=== PATIENT | female | born 1990 | race African-American/Black ===

== ENCOUNTER 2018-09-20 01:02 | Inpatient (IN) | payer OTHER ==
[2018-09-20] MEDS ORDERED: METHYLERGONOVINE 0.2MG/ML AMP IM PRN (05:07)
[2018-09-20] MEDS ORDERED: MIDAZOLAM HCL 2 MG/2 ML INJ IV PRN (05:07)
[2018-09-20] MEDS ORDERED: MEPERIDINE HCL 25 MG/0.5 ML IV PRN (05:07)
[2018-09-20] MEDS ORDERED: CARBOPROST TROME 250 MCG/ML IM PRN (05:07)
[2018-09-20] MEDS ORDERED: Ringers Lactate 1,000 ML IV PRN (05:07)
[2018-09-20] MEDS ORDERED: PROMETHAZINE 25 MG/ML VIAL IM PRN (05:07)
[2018-09-20] MEDS ORDERED: BUTORPHANOL 1 MG/ML INJ IV PRN (05:07)
[2018-09-20 05:30] LABS: RPR Titer ND
[2018-09-20 05:34] VITALS: BMI 33.3
[2018-09-20 05:48] LABS: Absolute Lymphocytes (CBC) 3.9 K/uL (0.7-4.9); Absolute Monocytes 1.4 K/uL (0.1-1.3); Absolute Neutrophil 14.3 K/uL (1.8-8.0); Basophils % 0.5 % (0-1.3); Hematocrit 32.6 % (36.0-45.0); Lymphocytes % 19.4 % (15.3-44.8); MPV 10.3 fL (7.6-11.3); Monocytes % 7.2 % (3.3-12.3); RBC Red Blood Cell Count 4.11 M/uL (3.86-4.86)
[2018-09-20] MEDS ORDERED: Ringers Lactate 1,000 ML IV SCH (06:00)
[2018-09-20] MEDS ORDERED: OXYTOCIN/LR 20 UNIT/1,000 ML BAG IV SCH ×2 (06:00→18:00)
[2018-09-20 06:45] LABS: Urine Appearance CLEAR; Urine Bilirubin NEGATIVE (NEG); Urine Blood NEGATIVE (NEG); Urine Color DK YELLOW; Urine Glucose NEGATIVE (NEG); Urine Protein TRACE (NEG); Urine Specific Gravity 1.025 (1.005-1.030)
[2018-09-20 06:52] LABS: Urine Microscopic Reflex ORDER UMIC
[2018-09-20 06:58] LABS: Urine Bacteria <20 /HPF (<20); Urine Culture Reflex Order REFLEXED; Urine Mucus 1+ /HPF (NONE SEEN); Urine RBC <5 /HPF (NONE SEEN)
[2018-09-20 08:46] LABS: Blood Morphology Comment NOTED (NOT SEEN); Urine White Blood Cell Casts OK
[2018-09-20 08:47] LABS: Anisocytosis 1+; Platelet Estimate ADEQ
[2018-09-20] MEDS ORDERED: FENTANYL CITR 100 MCG/2 ML IV ONE (09:08)
[2018-09-20] MEDS ORDERED: ROPIVACAINE HCL 100 ML IV PRN (09:09)
[2018-09-20] MEDS ORDERED: ROPIVACAINE HCL 0.2% 20ML AMP IV ONE (09:10)
[2018-09-20] MEDS ORDERED: NA CIT/CITRIC AC 30 ML ORAL UDC PO ONE (13:46)
[2018-09-20] MEDS ORDERED: FAMOTIDINE 20 MG/2 ML VIAL IV ONE (13:47)
[2018-09-20] MEDS ORDERED: METOCLOPRAMIDE 10 MG/2mL INJ IV SCH (14:00)
[2018-09-20] MEDS ORDERED: CEFAZOLIN/SWI 2gm 2 GM/20 ML SYR IVP SCH (15:30)
--- NOTE | 2018-09-20 16:06 | PN ---
Upon achieving 4 cm, requested her epidural anesthesia. This was instituted slightly. Thereafter, s he had some decelerations down to 60 beats per minute but maintained good variability throughout. Sh e was put in knee-chest position and this resolved the problem. She is now back on the left side and the baby looks good. She is still 6 cm. We will likely begin Pitocin again to try to stimulate romy adriane contractions. Full discussion with the family. MARY/PAUL Voice ID: [id number] Report ID: [id number]
[2018-09-20] MEDS ORDERED: LIDOCAINE 1% 20 ML MDV ONE (17:42)
--- NOTE | 2018-09-20 17:42 | PN ---
Subjective: The patient has progressed to 7.5 to 8 cm, but the cervix is becoming edematous. She is not descended any more than what she was on previous exams and I believe the baby is straight occipu t posterior. We will start her doing pelvic rocks, cut the epidural maintenance dose from 10 to 8 as she cannot feel anything at all. Occasionally, the baby will have heart rate pattern, it look s like a nuchal cord and then with positioning and IV hydration, it will straighten out plus each valeriy e she has this pattern, we can cut the Pitocin off and then restart at a very low rate. I am afraid without Pitocin she is probably not going to dilate, but with it we tend to get into some heart rate irregularities. Full discussion with patient and family. Right now, though, baby is looking excelle nt and we will restart the Pitocin at a low dose and progress cautiously. MARY/PAUL Voice ID: [id number] Report ID: [id number]
[2018-09-20] MEDS ORDERED: DOCUSATE NA/SENNA CONC 1 TAB PO PRN (17:47)
[2018-09-20] MEDS ORDERED: ACETAMINOPHEN 500 MG TAB PO PRN (17:47)
[2018-09-20] MEDS ORDERED: BISACODYL 10 MG RECTAL SUPP RECT PRN (17:47)
[2018-09-20] MEDS ORDERED: Oxycodone HCl/Acetaminophen 1 TAB TAB PO PRN (17:47)
[2018-09-20] MEDS ORDERED: DIPHENHYDRAMINE 25 MG TAB/CAP PO PRN (17:47)
--- NOTE | 2018-09-20 17:57 | PN ---
Subjective: The patient has really made no change in the last 2.5 to 3 hours now, she is 8.5, edemat ous cervical lip, baby is definitely occiput posterior. At times, the baby will have decelerations t hat look like a cord pattern, but then when she is on her side it goes completely back to normal. Edgar baker is greg regularly every 2 to 3 minutes. She is aware of her contractions, but is not in any significant discomfort. Preoperative discussion concerning infection, blood loss, anesthetic compli cations, injury to bladder, bowel, ureter, postoperative complications, clots in legs, and pneumonia, the patient knows fully well, does not constitute all the possible problems that could occur during or following surgery. I have advised the patient to probably wait at least another 30 minutes to an hour and if no change, then proceed with C section, but she is thinking about requesting surgical int ervention earlier. She will talk it over the family and then let us know. Otherwise, I plan to chec k her in about half an hour. MARY/PAUL Voice ID: [id number] Report ID: [id number]
[2018-09-20] MEDS ORDERED: CEFAZOLIN/SWI 1gm 1 GM/10 ML SYR ONE (18:10)
[2018-09-20] MEDS ORDERED: Oxycodone HCl/Acetaminophen 1 TAB TAB ONE (18:18)
[2018-09-20] MEDS ORDERED: BUTORPHANOL 1 MG/ML INJ ONE (18:34)
[2018-09-20] MEDS ORDERED: PROMETHAZINE 25 MG/ML VIAL ONE (18:34)
[2018-09-20] MEDS ORDERED: CEFAZOLIN/NS 1gm 1 GM/50 ML BAG IVPB ONE (19:30)
[2018-09-20] MEDS ORDERED: BUTORPHANOL 1 MG/ML INJ IV ONE (19:33)
[2018-09-20] MEDS ORDERED: PROMETHAZINE 25 MG/ML VIAL IM ONE (19:33)
[2018-09-20] MEDS: IBUPROFEN 200 MG TAB PO PRN (20:00)
[2018-09-20 20:58] LABS: RPR (Rapid Plasma Reagin) NON-REACT (NON-REACT)
[2018-09-20] MEDS: Oxycodone HCl/Acetaminophen 1 TAB TAB PO PRN (22:15)
--- NOTE | 2018-09-21 04:13 | OP ---
Surgeon: Bib Mina MD A 28-year-old, 2, para 1, 39 weeks 2 days, approximately 2-1/2 to 3 cm on admission. Rupture of membranes, clear fluid. At 4 cm, patient requested and received epidural anesthesia. This made the patient extremely numb. Gradually during the labor, was allowed to slightly wear off. The patie nt was noted to be occiput posterior. Pushed for approximately 20-30 minutes. Spontaneous vaginal d elivery with the assistance of kiwi suction of an estimated 8-pound male , Apgars 7 or 8 at 1 m inute and 9 at 5 minutes. Second-degree lateral episiotomy performed to create more room, repaired w ith 2-0 chromic local infiltration, although patient was still numb from her epidural. Aishwarya colmenares of the placenta which was inspected and noted to be intact and normal. 300 cc or less blood los s. Nuchal cord x1 noted at the time of delivery. The patient tolerated all procedures well. Final Diagnoses: Term intrauterine , 39 weeks 2 days, vaginal delivery, epidural anesthesia . Vacuum assisted delivery. Ancef 1 g ordered as patient had [place] catheter placed during the labor after the epidural; this was removed as it was not ordered. MARY/MODL Voice ID: [id number] Report ID: [id number]
[2018-09-21] MEDS ORDERED: Ringers Lactate 1,000 ML IV ONE (05:02)
[2018-09-21] MEDS: IBUPROFEN 200 MG TAB PO PRN ×2 (05:59→13:51)
--- NOTE | 2018-09-21 07:25 | DS ---
A 28-year-old, 2, para 1, 39 weeks 2 days, delivered of 8 pound 4 ounce male from a st ight occiput posterior position, vacuum-assisted delivery. Apgars 8 and 9. Second degree episioto my created to help with her delivery process, repaired with 2-0 chromic. Schultze delivery of the pl acenta, which inspected and noted to be intact and normal. 300 cc or less blood loss. Rh positive, immune to Rubella. Negative beta strep screen. Ancef 1 g given secondary to [place] catheter being in place during the labor - not ordered. ; afebrile, ambulating, voiding, lochia is normal. She will be dismissed later this evening. To report back to my office in 6 weeks for followup. To report any temperature elevation of 100 degrees or greater, severe pain, heavy bleeding, or any other type of abnormalities. No post epidural problems. Tdap offered. Dismissed with tramadol for analg esia, although she may elect to take Motrin instead. Final Diagnoses: Term intrauterine , 39 weeks 2 days. [facility]. Epidural anesthesia. MARY/PAUL Voice ID: [id number] Report ID: [id number]
[2018-09-21] MEDS: Oxycodone HCl/Acetaminophen 1 TAB TAB PO PRN ×2 (07:57→13:52)
--- NOTE | 2018-09-21 08:14 | PREOPHP ---
Date of Admission: 09/20/2018 This 28-year-old, 2, para 1, 39 weeks 2 days, Rh positive, nonimmune to rubella. This has be en discussed several times during the . She knows she should get immunized before she leave s the hospital. Tdap has been offered numerous times. Full labor talk given. She is 3 cm, somewhat slightly posterior, 60% effaced, vertex, well applied, -1 station. Rupture of membranes, clear flui d. Anticipate more rapid progress once she gets to 5 cm, probably will be requesting epidural anesth esia. MARY/PAUL Voice ID: [id number]
[2018-09-21] MEDS ORDERED: MEASLES,MUMPS,RUBELLA VAC 0.5ML SQVAC ONE (18:00)
[2018-09-21] MEDS ORDERED: Tdap (Diph,Pertuss(Acell),Tet Vac) 0.5 ML SYR IMVAC ONE (18:00)
[2018-09-21 21:10] VITALS: BP 134/84; TEMP 97.2
[2018-09-22 18:23] LABS: HBsAG Nonreactive (Nonreactive)
== END 2018-09-21 20:45 | disposition home or self-care (01) | DRG 807 ==
LOC: 2ND-WC 04:35
PROVIDERS: ADMIT Specialist; ATTEND Specialist
PROC: 10D07Z6 Extraction of Products of Conception, Vacuum, Via Natural or Artificial Opening (ICD-10-PCS; principal; 2018-09-20)
PROC: 0W8NXZZ Division of Female Perineum, External Approach (ICD-10-PCS; 2018-09-20)
DX: O64.0XX0 Obstructed labor due to incomplete rotation of fetal head, not applicable or unspecified (principal); Z37.0 Single live birth; Z3A.39 39 weeks gestation of pregnancy; O69.81X0 Labor and delivery complicated by cord around neck, without compression, not applicable or unspecified; Z23 Encounter for immunization
CPT/HCPCS: 36415; 81003; 81015; 85025; 86592; 86850; 86900; 86901; 87086; 87088; 87340; 90471; 90707; 90715; J0595; J0690; J2175; J2210; J2550; J2590; J2765; J2795; J3010

== ENCOUNTER 2019-03-22 08:22 | Emergency (ER) | payer OTHER, SELFPAY ==
--- NOTE | 2019-03-22 09:52 | ER ---
Nurse's Notes [facility] Name: Carmen Luna Age: 28 yrs Sex: Female : 1990 Arrival Date: 03/22/2019 Time: 08:26 Bed 16 Private MD: Diagnosis: Acute pharyngitis;Headache Presentation: 03/22 08:38 Presenting complaint: Patient states: sore throat and headache x 2-3 days. Transition ss of care: patient was not received from another setting of care. Onset of symptoms was March 20, 2019. Risk Assessment: Do you want to hurt yourself or someone else? Patient reports no desire to harm self or others. Initial Sepsis Screen: Does the patient meet any 2 criteria? No. Patient's initial sepsis screen is negative. Does the patient have a suspected source of infection? No. Patient's initial sepsis screen is negative. Care prior to arrival: None. 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 - Social history:: Smoking status: Patient uses tobacco products, denies chronic smoking, but will smoke occasionally. - Ebola Screening: : Patient denies exposure to infectious person Patient denies travel to an Ebola-affected area in the 21 days before illness onset. Screenin:48 Abuse screen: Denies threats or abuse. Denies injuries from another. Nutritional jl7 screening: No deficits noted. Tuberculosis screening: No symptoms or risk factors identified. Fall Risk None identified. Assessment: 08:48 General: Appears in no apparent distress. comfortable, Behavior is calm, cooperative, jl7 appropriate for age. Pain: Complains of pain in sore throat and SCOTT Pain currently is 6 out of 10 on a pain scale. Neuro: Level of Consciousness is awake, alert, obeys commands, Oriented to person, place, time, situation. Cardiovascular: Patient's skin is warm and dry. Respiratory: Airway is patent Respiratory effort is even, unlabored, Respiratory pattern is regular, symmetrical, Breath sounds are clear bilaterally. EENT: Throat is clear is pink. Derm: Skin is pink, warm \T\ dry. 09:45 Reassessment: Patient appears in no apparent distress at this time. No changes from jl7 previously documented assessment. Patient and/or family updated on plan of care and expected duration. Pain level reassessed. Patient is alert, oriented x 3, equal unlabored respirations, skin warm/dry/pink. Vital Signs: 08:39 BP 125 / 78; Pulse 79; Resp 15; Temp 97.6(TE); Pulse Ox 100% on R/A; Weight 80.29 kg; ss Height 5 ft. 6 in. (167.64 cm); Pain 6/10; 08:39 Body Mass Index 28.57 (80.29 kg, 167.64 cm) ED Course: 08:26 Patient arrived in ED. mr 08:38 Triage completed. ss 08:39 Arm band placed on left wrist. 08:40 Dhiraj Fox FNP-C [facility]. la1 08:40 Magno De Oliveira MD is Attending Physician. la1 08:48 Jessica Rosario, RN is Primary Nurse. jl7 08:48 Patient has correct armband on for positive identification. Bed in low position. Call jl7 light in reach. Side rails up X 1. 09:00 Flu and/or RSV swab sent to lab. Strep swab sent to lab. jl7 10:16 No provider procedures requiring assistance completed. Patient did not have IV access jl7 during this emergency room visit. Administered Medications: No medications were administered Outcome: 09:52 Discharge ordered by . la1 10:17 Discharged to home ambulatory. jl7 10:17 Condition: stable 10:17 Discharge instructions given to patient, Instructed on discharge instructions, follow up and referral plans. Demonstrated understanding of instructions, follow-up care. 10:18 Patient left the ED. jl7 Signatures: [place] Bryan Anna Meyers, RN RN Dhiraj Fox FNP-C FNP-[facility] Jessica Rosario RN RN jl7
--- NOTE | 2019-03-22 09:53 | EDPHYS ---
Physician Documentation [facility] Name: Carmen Luna Age: 28 yrs Sex: Female : 1990 Arrival Date: 03/22/2019 Time: 08:26 Bed 16 Private MD: ED Physician Magno De Oliveira HPI: 03/22 09:26 This 28 yrs old Black Female presents to ER via Ambulatory with complaints of Sore la1 Throat, Headache. 09:26 The patient presents with sore throat. The patient describes throat pain as scratchy. la1 Onset: The symptoms/episode began/occurred 2 day(s) ago. Severity of symptoms: At their worst the symptoms were mild. Modifying factors: The symptoms are alleviated by nothing, the symptoms are aggravated by swallowing. Associated signs and symptoms: Pertinent positives: chills, cough. The patient has not experienced similar symptoms in the past. Pt reports that she has had a headache, sore throat, nasal congestion for the last 2 days.. 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 - Social history:: Smoking status: Patient uses tobacco products, denies chronic smoking, but will smoke occasionally. - Ebola Screening: : Patient denies exposure to infectious person Patient denies travel to an Ebola-affected area in the 21 days before illness onset. ROS: 09:26 Constitutional: Negative for fever, chills, and weight loss, Eyes: Negative for injury, la1 pain, redness, and discharge, ENT: Negative for injury, pain, positive for runny nose, congestion Neck: Negative for injury, pain, and swelling, Cardiovascular: Negative for chest pain, palpitations, and edema, Respiratory: Negative for shortness of breath, wheezing, and pleuritic chest pain,positive for cough Abdomen/GI: Negative for abdominal pain, nausea, vomiting, diarrhea, and constipation, : Negative for injury, bleeding, discharge, and swelling, Skin: Negative for injury, rash, and discoloration, Neuro: Negative for headache, weakness, numbness, tingling, and seizure. Exam: 09:28 Constitutional: This is a well developed, well nourished patient who is awake, alert, la1 and in no acute distress. Head/Face: Normocephalic, atraumatic. Eyes: Pupils equal round and reactive to light, extra-ocular motions intact.Periorbital areas with no swelling, redness, or edema. ENT: Nares patent. No nasal discharge, no septal abnormalities noted. Tympanic membranes are normal and external auditory canals are clear. Oropharynx is erythematous but without swelling, or masses, exudates, or evidence of obstruction, uvula midline. Mucous membranes moist. Neck: Trachea midline, no thyromegaly or masses palpated. Supple, full range of motion without nuchal rigidity, or vertebral point tenderness. No Meningismus. Mild cervical lymphadenopathy Chest/axilla: Normal chest wall appearance and motion. Nontender with no deformity. No lesions are appreciated. Cardiovascular: Regular rate and rhythm with a normal S1 and S2. No gallops, murmurs, or rubs. Normal PMI, no JVD. No pulse deficits. Respiratory: Lungs have equal breath sounds bilaterally, clear to auscultation No rales, rhonchi or wheezes noted. No increased work of breathing, no retractions or nasal flaring. Abdomen/GI: Soft, non-tender, with normal bowel sounds. No distension or tympany. No guarding or rebound. No evidence of tenderness throughout. MS/ Extremity: Pulses equal, no cyanosis. Neurovascular intact. Full, normal range of motion. Neuro: Awake and alert, GCS 15, oriented to person, place, time, and situation. Vital Signs: 08:39 BP 125 / 78; Pulse 79; Resp 15; Temp 97.6(TE); Pulse Ox 100% on R/A; Weight 80.29 kg; ss Height 5 ft. 6 in. (167.64 cm); Pain 6/10; 08:39 Body Mass Index 28.57 (80.29 kg, 167.64 cm) ss MDM: 08:40 Patient medically screened. la1 09:51 Data reviewed: vital signs, nurses notes, lab test result(s), and as a result, I will la1 discharge patient. Data interpreted: Pulse oximetry: on room air is 100 %. Interpretation: normal. Counseling: I had a detailed discussion with the patient and/or guardian regarding: the historical points, exam findings, and any diagnostic results supporting the discharge/admit diagnosis, the presence of at least one elevated blood pressure reading (>120/80) during this emergency department visit, lab results, the need for outpatient follow up, a family practitioner, to return to the emergency department if symptoms worsen or persist or if there are any questions or concerns that arise at home. 03/22 08:55 Order name: Strep la1 03/22 08:55 Order name: Flu la1 03/22 09:24 Order name: Throat Culture EDMS Administered Medications: No medications were administered Disposition: 14:09 Co-signature as Attending Physician, Magno De Oliveira MD. rn Disposition: 03/22/19 09:52 Discharged to Home. Impression: Acute pharyngitis, Headache. - Condition is Stable. - Discharge Instructions: Pharyngitis, Viral Respiratory Infection, Mxus-[id number]-Rcqh, General Headache Without Cause, Asws-rh-Vufk, Sore Throat, Xanz-rl-Hpak. - Work release form, Medication Reconciliation Form, Thank You Letter form. - Follow up: Private Physician; When: 2 - 3 days; Reason: Recheck today's complaints, Re-evaluation by your physician. - Problem is new. - Symptoms are unchanged. Signatures: Dispatcher [employer] EDMS Magno De Oliveira MD MD rn Smirch, Shelby, RN RN Dhiraj Fox, CROP SETTING OUT MACHINE OPERATOR-C CROP SETTING OUT MACHINE OPERATOR-Cla1 Jessica Rosario RN RN jl7 Corrections: (The following items were deleted from the chart) 10:18 09:52 03/22/2019 09:52 Discharged to Home. Impression: Acute pharyngitis; Headache. jl7 Condition is Stable. Forms are Medication Reconciliation Form, Thank You Letter, Antibiotic Education, Prescription Opioid Use. Follow up: Private Physician; When: 2 - 3 days; Reason: Recheck today's complaints, Re-evaluation by your physician. Problem is new. Symptoms are unchanged. la1
[2019-03-22 10:51] VITALS: BP 125/78; TEMP 97.6; O2SAT 100
== END 2019-03-22 10:18 | disposition home or self-care (01) ==
LOC: ER 08:22
DX: R51 Headache (principal); Z72.0 Tobacco use
CPT/HCPCS: 87070; 87081; 87804; 99283

== ENCOUNTER 2019-04-16 06:54 | Emergency (ER) | payer SELFPAY ==
[2019-04-16] MEDS ORDERED: IBUPROFEN 200 MG TAB PO ONE (08:03)
[2019-04-16] MEDS ORDERED: OSELTAMIVIR 75 MG CAP ONE (08:03)
[2019-04-16] MEDS ORDERED: AMOX/K CLAV 875 MG TAB ONE (08:03)
--- NOTE | 2019-04-16 08:22 | ER ---
Nurse's Notes [facility] Name: Carmen Luna Age: 28 yrs Sex: Female : 1990 Arrival Date: 04/16/2019 Time: 06:57 Bed 19 Private MD: Diagnosis: Acute pharyngitis;Fever, unspecified;Acute upper respiratory infection, unspecified Presentation: 04/16 07:05 Presenting complaint: Patient states: Symptoms started yesterday, sore throat, fever, rb1 and runny nose. Transition of care: patient was not received from another setting of care. Onset of symptoms was April 15, 2019. Risk Assessment: Do you want to hurt yourself or someone else? Patient reports no desire to harm self or others. Initial Sepsis Screen: Does the patient meet any 2 criteria? No. Patient's initial sepsis screen is negative. Does the patient have a suspected source of infection? No. Patient's initial sepsis screen is negative. Care prior to arrival: None. 07:05 Method Of Arrival: Ambulatory rb1 07:05 Acuity: REG 3 rb1 Triage Assessment: 07:05 General: Appears in no apparent distress. comfortable, Behavior is calm, cooperative, rb1 Reports fever for. Pain: Complains of pain in throat Pain currently is 7 out of 10 on a pain scale. EENT: Reports nasal discharge that is watery. Neuro: Level of Consciousness is awake, alert, obeys commands, Oriented to person, place, time, situation. Cardiovascular: Capillary refill < 3 seconds is brisk in bilateral fingers. Respiratory: Reports cough that is Airway is patent Respiratory effort is even, unlabored, Respiratory pattern is regular, symmetrical. GI: No signs and/or symptoms were reported involving the gastrointestinal system. : No signs and/or symptoms were reported regarding the genitourinary system. Derm: Skin is pink, warm \T\ dry. 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 - Social history:: Smoking status: Patient/guardian denies using tobacco. - Ebola Screening: : Patient negative for fever greater than or equal to 101.5 degrees Fahrenheit, and additional compatible Ebola Virus Disease symptoms. - Family history:: not pertinent. Screenin:05 Abuse screen: Denies threats or abuse. Nutritional screening: No deficits noted. rb1 Tuberculosis screening: No symptoms or risk factors identified. Fall Risk None identified. Assessment: 07:05 General: See triage assessment. rb1 07:05 EENT: Throat is reddened. rb1 Vital Signs: 07:05 BP 129 / 87; Pulse 103; Resp 17; Temp 99.0(O); Pulse Ox 99% on R/A; Weight 78.02 kg rb1 (R); Height 5 ft. 5 in. (165.10 cm) (R); Pain 7/10; 08:17 BP 106 / 75; Pulse 60; Resp 17; Temp 98.5; Pulse Ox 100% on R/A; ae4 07:05 Body Mass Index 28.62 (78.02 kg, 165.10 cm) rb1 ED Course: 06:57 Patient arrived in ED. 06:59 Cesar Cole MD is Attending Physician. [facility] 07:05 Arm band placed on right wrist. rb1 07:05 Patient has correct armband on for positive identification. Bed in low position. Call rb1 light in reach. Side rails up X 1. Pulse ox on. NIBP on. 07:11 Bri Saavedra, RN is Primary Nurse. rb1 07:21 Triage completed. rb1 08:30 No provider procedures requiring assistance completed. Patient did not have IV access rb1 during this emergency room visit. Administered Medications: 08:06 Drug: Motrin 600 mg Route: PO; ae4 08:29 Follow up: Response: No adverse reaction rb1 Outcome: 08:20 Discharge ordered by . [facility] 08:30 Discharged to home ambulatory. rb1 08:30 Condition: stable 08:30 Discharge instructions given to patient, Instructed on discharge instructions, follow up and referral plans. medication usage, Demonstrated understanding of instructions, follow-up care, medications, Prescriptions given X 4. 08:31 Patient left the ED. rb1 Signatures: Cesar Cole MD MD cha Salyer, Edna Bri Saavedra, RN RN rb1 Kyrie Patricia RN RN ae4
--- NOTE | 2019-04-16 08:23 | EDPHYS ---
Physician Documentation [facility] Name: Carmen Luna Age: 28 yrs Sex: Female : 1990 Arrival Date: 04/16/2019 Time: 06:57 Bed 19 Private MD: ED Physician Cesar Cole HPI: 04/16 07:37 This 28 yrs old Black Female presents to ER via Ambulatory with complaints of Sore ivis Throat, Headache, Runny Nose. 07:37 The patient presents with sore throat. The patient describes throat pain as burning, ivis constant. Onset: The symptoms/episode began/occurred 1 day(s) ago. Severity of symptoms: At their worst the symptoms were mild, in the emergency department the symptoms are unchanged. Modifying factors: The symptoms are alleviated by nothing, the symptoms are aggravated by nothing. The patient has not experienced similar symptoms in the past. 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 - Social history:: Smoking status: Patient/guardian denies using tobacco. - Ebola Screening: : Patient negative for fever greater than or equal to 101.5 degrees Fahrenheit, and additional compatible Ebola Virus Disease symptoms. - Family history:: not pertinent. ROS: 07:37 Constitutional: Negative for fever, chills, and weight loss, Eyes: Negative for injury, ivis pain, redness, and discharge, Neck: Negative for injury, pain, and swelling, Cardiovascular: Negative for chest pain, palpitations, and edema, Respiratory: Negative for shortness of breath, cough, wheezing, and pleuritic chest pain, Abdomen/GI: Negative for abdominal pain, nausea, vomiting, diarrhea, and constipation, Back: Negative for injury and pain, : Negative for injury, bleeding, discharge, and swelling, MS/Extremity: Negative for injury and deformity, Skin: Negative for injury, rash, and discoloration, Neuro: Negative for headache, weakness, numbness, tingling, and seizure, Psych: Negative for depression, anxiety, suicide ideation, homicidal ideation, and hallucinations, Allergy/Immunology: Negative for hives, rash, and allergies, Endocrine: Negative for neck swelling, polydipsia, polyuria, polyphagia, and marked weight changes, Hematologic/Lymphatic: Negative for swollen nodes, abnormal bleeding, and unusual bruising. 07:37 ENT: Positive for rhinorrhea, sinus congestion, sinus pain, sore throat. 07:37 Respiratory: Positive for cough, "sounds productive". Exam: 07:37 Constitutional: This is a well developed, well nourished patient who is awake, alert, ivis and in no acute distress. Head/Face: Normocephalic, atraumatic. Eyes: Pupils equal round and reactive to light, extra-ocular motions intact. Lids and lashes normal. Conjunctiva and sclera are non-icteric and not injected. Cornea within normal limits. Periorbital areas with no swelling, redness, or edema. Neck: Trachea midline, no thyromegaly or masses palpated, and no cervical lymphadenopathy. Supple, full range of motion without nuchal rigidity, or vertebral point tenderness. No Meningismus. Chest/axilla: Normal chest wall appearance and motion. Nontender with no deformity. No lesions are appreciated. Cardiovascular: Regular rate and rhythm with a normal S1 and S2. No gallops, murmurs, or rubs. Normal PMI, no JVD. No pulse deficits. Respiratory: Lungs have equal breath sounds bilaterally, clear to auscultation and percussion. No rales, rhonchi or wheezes noted. No increased work of breathing, no retractions or nasal flaring. Abdomen/GI: Soft, non-tender, with normal bowel sounds. No distension or tympany. No guarding or rebound. No evidence of tenderness throughout. Back: No spinal tenderness. No costovertebral tenderness. Full range of motion. Skin: Warm, dry with normal turgor. Normal color with no rashes, no lesions, and no evidence of cellulitis. MS/ Extremity: Pulses equal, no cyanosis. Neurovascular intact. Full, normal range of motion. Neuro: Awake and alert, GCS 15, oriented to person, place, time, and situation. Cranial nerves II-XII grossly intact. Motor strength 5/5 in all extremities. Sensory grossly intact. Cerebellar exam normal. Normal gait. Psych: Awake, alert, with orientation to person, place and time. Behavior, mood, and affect are within normal limits. 07:37 ENT: Posterior pharynx: Airway: normal, no evidence of obstruction, Tonsils: with erythema, Uvula: normal, midline, non-edematous, no erythema, swelling, that is mild, erythema, that is mild, that is moderate, exudate, is not appreciated. Vital Signs: 07:05 BP 129 / 87; Pulse 103; Resp 17; Temp 99.0(O); Pulse Ox 99% on R/A; Weight 78.02 kg rb1 (R); Height 5 ft. 5 in. (165.10 cm) (R); Pain 7/10; 08:17 BP 106 / 75; Pulse 60; Resp 17; Temp 98.5; Pulse Ox 100% on R/A; ae4 07:05 Body Mass Index 28.62 (78.02 kg, 165.10 cm) [facility] MDM: 07:10 Patient medically screened. [facility] 07:40 Data reviewed: vital signs, nurses notes, lab test result(s). [facility] 04/16 07:26 Order name: Flu [facility] 04/16 07:26 Order name: Strep [facility] 04/16 08:04 Order name: Throat Culture EDMS Administered Medications: 08:06 Drug: Motrin 600 mg Route: PO; ae4 08:29 Follow up: Response: No adverse reaction [facility] Disposition: 04/16/19 08:20 Discharged to Home. Impression: Acute pharyngitis, Fever, unspecified, Acute upper respiratory infection, unspecified. - Condition is Stable. - Discharge Instructions: Pharyngitis, Upper Respiratory Infection, Adult, Cool Mist Vaporizer, Upper Respiratory Infection, Adult, Jtck-ss-Wher, Pharyngitis, Pmgh-yp-Qrty, Cough, Adult, Sore Throat, Osbt-ws-Hwvm. - Prescriptions for Augmentin 875- 125 mg Oral Tablet - take 1 tablet by ORAL route every 12 hours for 10 days; 20 tablet. Bijal- D 12 Hour 60-120 mg Oral Tablet Sustained Release 12 hr - take 1 tablet by ORAL route every 12 hours As needed; 20 tablet. Medrol (Gio) 4 mg Oral Tablets, Dose Pack - take 1 tablet by ORAL route as directed - follow package instructions; 1 packet. Tamiflu 75 mg Oral Capsule - take 1 tablet by ORAL route every 12 hours for 5 days; 9 tablet. - Work release form, Medication Reconciliation Form, Thank You Letter, Antibiotic Education, Prescription Opioid Use form. - Follow up: Private Physician; When: 2 - 3 days; Reason: Recheck today's complaints, Continuance of care, Re-evaluation by your physician. - Problem is new. - Symptoms have improved. Signatures: Dispatcher [employer] EDCesar Navas MD MD cha Barber, Rebecca, RN RN rb1 Kyrie Patricia RN RN ae4 Corrections: (The following items were deleted from the chart) 08:31 08:20 04/16/2019 08:20 Discharged to Home. Impression: Acute pharyngitis; Fever, rb1 unspecified; Acute upper respiratory infection, unspecified. Condition is Stable. Discharge Instructions: Pharyngitis, Upper Respiratory Infection, Adult, Cool Mist Vaporizer, Upper Respiratory Infection, Adult, Njtq-mi-Gghp, Pharyngitis, Ptom-ys-Ttkh, Cough, Adult, Sore Throat, Cgfz-ua-Ksbb. Prescriptions for Augmentin 875-125 mg Oral Tablet - take 1 tablet by ORAL route every 12 hours for 10 days; 20 tablet, Bijal-D 12 Hour 60-120 mg Oral Tablet Sustained Release 12 hr - take 1 tablet by ORAL route every 12 hours As needed; 20 tablet, Medrol (Gio) 4 mg Oral Tablets, Dose Pack - take 1 tablet by ORAL route as directed - follow package instructions; 1 packet, Tamiflu 75 mg Oral Capsule - take 1 tablet by ORAL route every 12 hours for 5 days; 9 tablet. and Forms are Work release form, Medication Reconciliation Form, Thank You Letter, Antibiotic Education, Prescription Opioid Use. Follow up: Private Physician; When: 2 - 3 days; Reason: Recheck today's complaints, Continuance of care, Re-evaluation by your physician. Problem is new. Symptoms have improved. ivis
[2019-04-16 08:42] VITALS: BP 106/75; TEMP 98.5; O2SAT 100
== END 2019-04-16 08:31 | disposition home or self-care (01) ==
LOC: ER 06:54
DX: J02.9 Acute pharyngitis, unspecified (principal)
CPT/HCPCS: 87070; 87081; 87804; 99283

== ENCOUNTER 2019-09-28 10:48 | Emergency (ER) | payer SELFPAY ==
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
[2019-09-28 12:24] LABS: Urine Blood NEGATIVE (NEG); Urine Glucose NEGATIVE (NEG); Urine Protein NEGATIVE (NEG); Urine Specific Gravity >1.030 (1.005-1.030)
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
[2019-09-28 13:01] VITALS: BP 127/82; TEMP 97.2; O2SAT 100
== END 2019-09-28 12:45 | disposition home or self-care (01) ==
LOC: ER 10:48
DX: M51.16 Intervertebral disc disorders with radiculopathy, lumbar region (principal)
CPT/HCPCS: 72131; 81003; 81025; 99282

== ENCOUNTER 2020-08-13 08:58 | Emergency (ER) | payer SELFPAY ==
--- OUTSIDE RECORDS SUMMARY | 2020-08-13 09:01 | XMS REPORT | Continuity of Care Document ---
:1990 Author Organization [facility] t Address [address] [place] [address] Care Team Providers Name Role Phone Lars Toro Attending Clinician Doctor Unassigned, Name Attending Clinician Unavailable Problems This patient has no known problems. Allergies, Adverse Reactions, Alerts This patient has no known allergies or adverse reactions. Medications This patient has no known medications. Procedures This patient has no known procedures. 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 2020-04-18 2020-04-18 Refill Doctor [facility] [id number] 00:00:00 00:00:00 Unassigned, KIDS ACTIVITIES COACH [id number] [place]AL [id number] MATERNAL [id number] & CHILD [address] [facility] 2020-03-30 2020-03-30 Telephone KATHLEEN [place] [id number] 00:00:00 00:00:00 Ligia Sousa KIDS ACTIVITIES COACH [id number] REGIONAL [id number] MATERNAL [id number] & CHILD [address] [facility] 2020-03-29 2020-03-29 Office Felix [facility] [id number] 14:10:41 14:31:32 Visit Ligia Sousa KIDS ACTIVITIES COACH [id number] [facility] [id number] MATERNAL [id number] & CHILD [address] [place] [address] - GUILD Results This patient has no known results.
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
--- NOTE | 2020-08-13 10:04 | ER ---
Nurse's Notes [facility] Name: Carmen Luna Age: 30 yrs Sex: Female : 1990 Arrival Date: 08/13/2020 Time: 09: Bed 12 Private MD: Diagnosis: Contusion of right hand-5th finger Presentation: 08/13 09:07 Chief complaint: Patient states: Smashed R hand 5th digit in car door Thursday last ll1 week. Pain and bruising since. Coronavirus screen: Client denies travel out of the [place] in the last 14 days. At this time, the client does not indicate any symptoms associated with coronavirus-19. Ebola Screen: Patient denies travel to an Ebola-affected area in the 21 days before illness onset. Initial Sepsis Screen: Does the patient meet any 2 criteria? No. Patient's initial sepsis screen is negative. Does the patient have a suspected source of infection? Yes: Bone or joint infection. Risk Assessment: Do you want to hurt yourself or someone else? Patient reports no desire to harm self or others. Onset of symptoms was August 08, 2020. 09:07 Method Of Arrival: Ambulatory ll1 09:07 Acuity: REG 4 ll1 Triage Assessment: 09:10 General: Appears in no apparent distress. Behavior is calm, cooperative, appropriate ll1 for age. Pain: Complains of pain in R hand 5th digit Quality of pain is described as aching, Aggravated by increased activity. Neuro: No deficits noted. Cardiovascular: No deficits noted. Respiratory: No deficits noted. Musculoskeletal: Circulation, motion, and sensation intact. Capillary refill < 3 seconds, Tenderness present in R hand 5th digit Reports pain in R hand 5th digit. Injury Description: Crush injury. Historical: - Allergies: 09:07 No Known Allergies; ll1 - PMHx: 09:07 Asthma; ll1 - PSHx: 09:07 None; ll1 - Immunization history:: Flu vaccine is not up to date. - Social history:: Smoking status: Patient denies any tobacco usage or history of. Screenin:11 Nutritional screening: No deficits noted. Tuberculosis screening: No symptoms or risk sr5 factors identified. Fall Risk None identified. Assessment: 10:11 General: Appears in no apparent distress. Behavior is calm, cooperative. Pain: sr5 Complains of pain in dorsal aspect of distal phalanx of right little finger and dorsal aspect of middle phalanx of right little finger. Neuro: No deficits noted. Cardiovascular: No deficits noted. Respiratory: No deficits noted. GI: No deficits noted. : No deficits noted. EENT: No deficits noted. Derm: No deficits noted. Musculoskeletal: Reports tenderness in the tip of RIGHT pinky s/p being slammed in the car door. Skin intact, full ROM, no bruising or swelling noted. Pt does report tenderness citing "feels like it's getting slammed in the door all over again" anytime the fingers gets bumped. Post xray results, finger splint applied, pt verbalized education related to finger splint. Vital Signs: 09:07 BP 121 / 78; Pulse 60; Resp 16; Temp 97.7; Pulse Ox 100% ; Weight 79.83 kg; Height 5 ll1 ft. 5 in. (165.10 cm); Pain 6/10; 10:15 BP 111 / 74; Pulse 62; Pulse Ox 100% ; sr5 09:07 Body Mass Index 29.29 (79.83 kg, 165.10 cm) ll1 ED Course: 09:01 Patient arrived in ED. am2 09:07 Arm band placed on. ll1 09:09 Triage completed. ll1 09:10 Luís Minor NP is PHCP. pm1 09:10 Cesar Cole MD is Attending Physician. pm1 09:21 Hand Right 3 View XRAY In Process Unspecified. EDMS 10:05 Alec Rios MD is Referral Physician. pm1 10:11 Call light in reach. Pulse ox on. NIBP on. sr5 10:11 No provider procedures requiring assistance completed. Patient did not have IV access sr5 during this emergency room visit. Aluminum finger splint applied to right little finger, dorsal aspect of distal phalanx of right little finger and dorsal aspect of middle phalanx of right little finger. Administered Medications: No medications were administered Outcome: 10:03 Discharge ordered by . pm1 10:11 Discharged to home ambulatory. sr5 10:11 Condition: good 10:11 Discharge instructions given to patient, Instructed on discharge instructions, follow up and referral plans. finger splint Demonstrated understanding of instructions, follow-up care, splint care. 10:21 Patient left the ED. sr5 Signatures: Dispatcher [employer] Luís Savage NP HAND FINISHER pm1 Alvino Vega RN RN sr5 Maria Dolores Goode am2 Jazmine Mott RN RN ll1
--- NOTE | 2020-08-13 10:04 | EDPHYS ---
Physician Documentation [facility] Name: Carmen Luna Age: 30 yrs Sex: Female : 1990 Arrival Date: 08/13/2020 Time: 09: Bed 12 Private MD: ED Physician Cesar Cole HPI: 08/13 09:13 This 30 yrs old Black Female presents to ER via Ambulatory with complaints of Finger pm1 Injury. 09:13 The patient or guardian reports injury. The complaints affect the right little finger. pm1 Context: resulted from a crush injury, by a car door. Onset: The symptoms/episode began/occurred 5 day(s) ago. Modifying factors: The symptoms are alleviated by nothing, the symptoms are aggravated by movement. Associated signs and symptoms: Pertinent negatives: cyanosis distally, decreased sensation distally, numbness distally, tingling distally. Severity of symptoms: in the emergency department the symptoms have improved. The patient has not experienced similar symptoms in the past. The patient has not recently seen a physician. Historical: - Allergies: 09:07 No Known Allergies; ll1 - PMHx: 09:07 Asthma; ll1 - PSHx: 09:07 None; ll1 - Immunization history:: Flu vaccine is not up to date. - Social history:: Smoking status: Patient denies any tobacco usage or history of. ROS: 09:13 Constitutional: Negative for fever, chills, and weight loss, Cardiovascular: Negative pm1 for chest pain, palpitations, and edema, Respiratory: Negative for shortness of breath, cough, wheezing, and pleuritic chest pain. 09:13 Skin: Negative for injury, rash, and discoloration, Neuro: Negative for headache, weakness, numbness, tingling, and seizure. 09:13 MS/extremity: Positive for contusion, swelling, tenderness, of the dorsal aspect of distal phalanx of right little finger and palmar aspect of distal phalanx of right little finger, Negative for decreased range of motion, deformity. Exam: 09:13 Constitutional: This is a well developed, well nourished patient who is awake, alert, pm1 and in no acute distress. Head/Face: Normocephalic, atraumatic. 09:13 Skin: Warm, dry with normal turgor. Normal color with no rashes, no lesions, and no evidence of cellulitis. 09:13 Cardiovascular: Exam negative for acute changes, Rate: normal, Rhythm: regular, Pulses: no pulse deficits are appreciated. 09:13 Respiratory: Exam negative for acute changes, respiratory distress, shortness of breath. 09:13 Musculoskeletal/extremity: Extremities: grossly normal except: noted in the dorsal aspect of distal phalanx of right little finger and palmar aspect of distal phalanx of right little finger: tenderness, There is no evidence of decreased ROM, deformity, The patient is able to make a full fist and has full rang of motion intact for right 5th finger. 09:13 Neuro: Exam negative for acute changes, Orientation: is normal, Mentation: is normal, Motor: is normal, moves all fours. Vital Signs: 09:07 BP 121 / 78; Pulse 60; Resp 16; Temp 97.7; Pulse Ox 100% ; Weight 79.83 kg; Height 5 ll1 ft. 5 in. (165.10 cm); Pain 6/10; 10:15 BP 111 / 74; Pulse 62; Pulse Ox 100% ; sr5 09:07 Body Mass Index 29.29 (79.83 kg, 165.10 cm) ll1 MDM: 09:13 ED course: Patient refused pain medications. Has not taken any pain medications for pm1 this since injury happened. 09:45 Patient medically screened. [facility] 09:58 Data reviewed: vital signs. Data interpreted: Pulse oximetry: on room air is 100 %. pm1 Interpretation: normal. Counseling: I had a detailed discussion with the patient and/or guardian regarding: the historical points, exam findings, and any diagnostic results supporting the discharge/admit diagnosis, radiology results, the need for outpatient follow up, to return to the emergency department if symptoms worsen or persist or if there are any questions or concerns that arise at home. 08/13 09:13 Order name: Hand Right 3 View XRAY; Complete Time: 09:57 pm1 Administered Medications: No medications were administered Disposition: 08/14 07:06 Co-signature as Attending Physician, Cesar Cole MD I agree with the assessment and [facility] plan of care. Disposition: 08/13/20 10:03 Discharged to Home. Impression: Contusion of right hand - 5th finger. - Condition is Stable. - Discharge Instructions: Cast or Splint Care, Adult, Hand Contusion. - Medication Reconciliation Form, Thank You Letter, Antibiotic Education, Prescription Opioid Use form. - Follow up: Emergency Department; When: As needed; Reason: Worsening of condition. Follow up: Alec Rios MD; When: 2 - 3 days; Reason: Recheck today's complaints, Continuance of care, Re-evaluation by your physician. - Problem is new. - Symptoms have improved. Signatures: Dispatcher [employer] EDMS Cesar Cole MD MD cha Marinas, Patrick, MECHANICAL DEVELOPMENT ENGINEER MECHANICAL DEVELOPMENT ENGINEER pm1 Alvino Vega RN RN sr5 Jazmine Mott RN RN ll1 Corrections: (The following items were deleted from the chart) 04 10:06 10:03 08/13/2020 10:03 Discharged to Home. Impression: Contusion of right hand. pm1 Condition is Stable. Forms are Medication Reconciliation Form, Thank You Letter, Antibiotic Education, Prescription Opioid Use. Follow up: Emergency Department; When: As needed; Reason: Worsening of condition. Follow up: Private Physician; When: As needed; Reason: Recheck today's complaints, Continuance of care, Re-evaluation by your physician. Problem is new. Symptoms have improved. pm1 10:21 10:06 08/13/2020 10:03 Discharged to Home. Impression: Contusion of right hand - 5th sr5 finger. Condition is Stable. Discharge Instructions: Cast or Splint Care, Adult, Hand Contusion. Forms are Medication Reconciliation Form, Thank You Letter, Antibiotic Education, Prescription Opioid Use. Follow up: Emergency Department; When: As needed; Reason: Worsening of condition. Follow up: Alec Rios; When: 2 - 3 days; Reason: Recheck today's complaints, Continuance of care, Re-evaluation by your physician. Problem is new. Symptoms have improved. pm1
[2020-08-13 10:26] VITALS: TEMP 97.7; O2SAT 100
[2020-08-13 10:27] VITALS: BP 111/74
== END 2020-08-13 10:21 | disposition home or self-care (01) ==
LOC: ER 08:58
DX: S60.051A Contusion of right little finger without damage to nail, initial encounter (principal); W23.1XXA Caught, crushed, jammed, or pinched between stationary objects, initial encounter; Y93.89 Activity, other specified
CPT/HCPCS: 99283

== ENCOUNTER 2021-06-20 13:00 | Emergency (ER) | payer SELFPAY ==
--- OUTSIDE RECORDS SUMMARY | 2021-06-20 13:16 | XMS REPORT | Continuity of Care Document ---
:1990 Author Organization [facility] t Address [address] [place] [address] Care Team Providers Name Role Phone Lars ROWLAND Attending Clinician Unavailable Kashif ENGLAND, Lars Attending Clinician Doctor Unassigned, Name Attending Clinician Unavailable Visit, Nurse Attending Clinician Unavailable Payers Payer Name Policy Type Policy Number Effective Date Expiration Date Shankar hutson [id number] 2018 00:00:00 Advance Directives Directive Decision Effective Termination Comments Source Date Date Healthcare Agents on N/A Univ ersity FileNameRelationshipHealthcare [facility] Agent Medical RelationshipCommunicationCharAd[facility] Care [phone] (Mobile) Problems Condition Condition Condition Status Onset Resolution Last Treating Co mments Source Name Details Category Date Date Treatment Clinician Date Gonorrhea Gonorrhea Disease Active Uni vers 7-16 ity of 00:00: [address] No known No known Disease Unive rs active active ity of problems problems [facility] Allergies, Adverse Reactions, Alerts Allergy Allergy Status Severity Reaction(s) Onset Inactive Treating Comm ents Source Name Type Date Date Clinician NO KNOWN Drug Active Univers ALLERGIE Class ity of S [facility] Social History Social Habit Start Date Stop Date Quantity Comments Source Exposure to Not sure University of SARS-CoV-2 [facility] (event) [place] Alcohol intake 2020-03-29 2020-03-29 Current drinker Unive rsity of 00:00:00 00:00:00 of alcohol [facility] (finding) [place] Tobacco use and 2020-03-29 2020-03-29 Never used Universit y of exposure 00:00:00 00:00:00 [facility] Alcohol Comment 2019-11-02 2019-11-02 social Universit y of 00:00:00 00:00:00 [facility] History of 2016-11-01 Cigarette Smoker Universi ty of tobacco use 00:00:00 [facility] Sex Ass[birth year] At [birth year] Universit y of 00:00:00 00:00:00 [facility] Smoking Status Start Date Stop Date Source Former smoker 2020-03-29 00:00:00 2020-03-29 00:00:00 Universi ty of [facility] Medications Ordered Filled Start Stop Current Ordering Indication Dosage Frequency Signature Comments Components Source Medication Medication Date Date Medication? Clinician (SIG) Name Name delmy 2019-04- No [id number] 1000mg Take 2 Univers n 203-31 tablets by ity of (ZITHROMAX) 00:00: 05:59 mouth once [place] 500 mg 00 :00 now for 1 Medical tablet dose. Branch cefTRIAXone 2019- No 250mg Univ ers (ROCEPHIN) 11-03 ity of injection 16:45: 15:55 [place] 250 mg 00 :00 [facility] cefTRIAXone 2019- No 250mg 250 mg, U nivers (ROCEPHIN) 11-03 Intramuscu it y of injection 16:45: 15:55 [place], [place]CE, [place] 250 mg 00 :00 1 dose, [facility] 11/04/19 at 1145, TYRA
Re ason for Anti-Infec tive: Documented Infection< br>Documen jeronimo Infection Site: Pelvic
Duration of Therapy: Other (see Comments) azithromyci 2020- No [id number] 1000mg Take 2 Univers n 11-02 tablets by ity of (ZITHROMAX) 00:00: 04:59 mouth once [place] 500 mg 00 :00 now for 1 Medical tablet dose. Branch azithromyci 2020- No [id number] 1000mg Take 2 Univers n 11-02 tablets by ity of (ZITHROMAX) 00:00: 04:59 mouth once [place] 500 mg 00 :00 now for 1 Medical tablet dose. Branch No known No Univers medications ity of [facility] No known No Univers medications ity of [facility] No known No Univers medications ity of [facility] No known No Univers medications ity of [facility] No known No Univers medications ity of [facility] No known No Univers medications ity of [facility] No known No Univers medications ity of [facility] Immunizations Ordered Filled Immunization Date Status Comments Sourc e Immunization Name Name TD 2018-04-20 Completed University of 00:00:00 [facility] TDAP 2018-04-20 Completed University of 00:00:00 [facility] TDAP 2018-04-20 Completed University of 00:00:00 [facility] TDAP 2018-04-20 Completed University of 00:00:00 [facility] TDAP 2018-04-20 Completed University of 00:00:00 [facility] TDAP 2018-04-20 Completed University of 00:00:00 [facility] TDAP 2018-04-20 Completed University of 00:00:00 [facility] TDAP 2018-04-20 Completed University of 00:00:00 [facility] TDAP 2018-04-20 Completed University of 00:00:00 [facility] TDAP 2018-04-20 Completed University of 00:00:00 [facility] TDAP 2018-04-20 Completed University of 00:00:00 [facility] Vital Signs Vital Name Observation Time Observation Value Comments Source Systolic blood 2020-03-29 20:19:00 126 mm[Hg] Univer sity of pressure [facility] Diastolic blood 2020-03-29 20:19:00 71 mm[Hg] Unive rsity of pressure [facility] Heart rate 2020-03-29 20:19:00 64 /min [facility] Body temperature 2020-03-29 20:19:00 36.89 Jenelle Univ ersity [facility] Respiratory rate 2020-03-29 20:19:00 16 /min Univ ersity [facility] Body height 2020-03-29 20:19:00 165.1 cm [facility] Body weight 2020-03-29 20:19:00 78.563 kg [facility] BMI 2020-03-29 20:19:00 28.82 kg/m2 [facility] Systolic blood 2020-03-29 20:19:00 126 mm[Hg] Univer sity of pressure [facility] Diastolic blood 2020-03-29 20:19:00 71 mm[Hg] Unive rsity of pressure [facility] Heart rate 2020-03-29 20:19:00 64 /min Universi ty of [facility] Body temperature 2020-03-29 20:19:00 36.89 Jenelle Univ ersity of [facility] Respiratory rate 2020-03-29 20:19:00 16 /min Univ ersity of [facility] Body height 2020-03-29 20:19:00 165.1 cm Universi ty of [facility] Body weight 2020-03-29 20:19:00 78.563 kg Universi ty of [facility] BMI 2020-03-29 20:19:00 28.82 kg/m2 Universi ty of [facility] Systolic blood 2019-11-04 15:27:00 112 mm[Hg] Univer sity of pressure [facility] Diastolic blood 2019-11-04 15:27:00 68 mm[Hg] Unive rsity of pressure [facility] Heart rate 2019-11-04 15:27:00 49 /min Universi ty of [facility] Body temperature 2019-11-04 15:27:00 37.06 Jenelle Univ ersity of [facility] Respiratory rate 2019-11-04 15:27:00 16 /min Univ ersity of [facility] Body height 2019-11-04 15:27:00 165.1 cm Universi ty of [facility] Body weight 2019-11-04 15:27:00 80.922 kg Universi ty of [facility] BMI 2019-11-04 15:27:00 29.69 kg/m2 Universi ty of [facility] Systolic blood 2019-11-02 13:19:00 112 mm[Hg] Univer sity of pressure [facility] Diastolic blood 2019-11-02 13:19:00 56 mm[Hg] Unive rsity of pressure [facility] Heart rate 2019-11-02 13:19:00 58 /min Universi ty of [facility] Body temperature 2019-11-02 13:19:00 36.28 Jenelle Univ ersity of [facility] Respiratory rate 2019-11-02 13:19:00 16 /min Univ ersity of [facility] Body height 2019-11-02 13:19:00 165.1 cm [facility] Body weight 2019-11-02 13:19:00 80.287 kg [facility] BMI 2019-11-02 13:19:00 29.45 kg/m2 [facility] Procedures This patient has no known procedures. Encounters Start End Encounter Admission Attending Care Care Encounter Source Date/Time Date/Time Type Type Clinicians Facility Department ID 2020-11-06 2020-11-06 Outpatient Angela ROWLAND [facility] [id number] Univers 10:30:00 10:30:00 LIGIA [id number] [facility] 2020-11-06 2020-11-06 Outpatient Angela ROWLAND [facility] [id number] Univers 10:30:00 10:30:00 LIGIAMECHE [facility] 2020-11-06 2020-11-06 Outpatient Angela ROWLAND [facility] [id number] Univers 10:30:00 10:30:00 LIGIAMECHE [facility] 2020-07-06 2020-07-06 [facility] [id number] 00:00:00 00:00:00 Ligia Sousa SOCIAL SCIENTIST [id number] REGIONAL [id number] MATERNAL [id number] & CHILD [address] [place] [address] 2020-07-06 2020-07-06 Telephone Kashif MOMADALYN [id number] Univers 00:00:00 00:00:00 Ligia Sousa SOCIAL SCIENTIST [id number] it y of REGIONAL [id number] Marc as MATERNAL [id number] Med ical & CHILD [address] [place] [address] 2020-06-28 2020-06-28 Outpatient [facility] [id number] Univers 10:30:00 10:30:00 [id number] [facility] 2020-06-28 2020-06-28 Outpatient Angela ROWLAND [facility] [id number] Univers 10:30:00 10:30:00 LIGIA [facility] 2020-04-18 2020-04-18 Refill Doctor [facility] [id number] 00:00:00 00:00:00 Unassigned, SOCIAL SCIENTIST [id number] [place] REGIONAL [id number] MATERNAL [id number] & CHILD [address] [place] [address] 2020-04-18 2020-04-18 Refill Doctor [facility] [id number] Univers 00:00:00 00:00:00 Unassigned, SOCIAL SCIENTIST [id number] ity of [place] REGIONAL [id number] Marc as MATERNAL [id number] Med ical & CHILD [address] [place] [address] 2020-03-30 2020-03-30 Telephone [facility] [id number] 00:00:00 00:00:00 Ligia Lars SOCIAL SCIENTIST [id number] [facility] [id number] MATERNAL [id number] & CHILD [address] [place] [address] 2020-03-30 2020-03-30 Telephone [facility] [id number] [facility] 00:00:00 00:00:00 Ligia Lars SOCIAL SCIENTIST [id number] it y of [facility] [id number] Marc as MATERNAL [id number] Med ical & CHILD [address] [place] [address] 2020-03-29 2020-03-29 Office [facility] [id number] 14:10:41 14:31:32 Visit Ligia Lars SOCIAL SCIENTIST [id number] REGIONAL [id number] MATERNAL [id number] & CHILD [address] [place] [address] 2020-03-29 2020-03-29 Office [facility] [id number] [facility] 14:10:41 14:31:32 Visit Ligia Lars SOCIAL SCIENTIST [id number] it y of [facility] [id number] Marc as MATERNAL [id number] Med ical & CHILD [address] [place] [address] 2020-03-29 2020-03-29 Outpatient Angela ROWLAND [facility] [id number] Univers 14:15:00 14:15:00 LIGIA [id number] ity of [facility] 2020-03-29 2020-03-29 [facility] [id number] Univers 14:15:00 14:15:00 LIGIA maryanne [facility] 2020-03-27 2020-03-27 [facility] [id number] Univers 09:00:00 09:00:00 LIGIA ity [facility] 2020-03-27 2020-03-27 [facility] [id number] Univers 09:00:00 09:00:00 LIGIA maryanne [facility] 2020-03-22 2020-03-22 [facility] [id number] Univers 15:15:00 15:15:00 LIGIA ity [facility] 2020-03-22 2020-03-22 [facility] [id number] Univers 15:15:00 15:15:00 LIGIA maryanne [facility] 2020-02-03 2020-02-03 Outpatient R [facility] [id number] Univers 08:30:00 08:30:00 [id number] [facility] 2020-02-03 2020-02-03 Outpatient R [facility] [id number] Univers 08:30:00 08:30:00 ity [facility] 2019-11-04 2019-11-04 Nurse Visit, JoseRmchp Nurse [facility] 1.2 [id number] Univers 10:07:35 10:43:34 Visit Ligia Rowland SOCIAL SCIENTIST [id number] ity [facility] [id number] Marc as MATERNAL [id number] [facility] ical & CHILD [address] [place] [address] 2019-11-04 2019-11-04 Outpatient [facility] [id number] Univers 10:00:00 10:00:00 [id number] ity [facility] 2019-11-04 2019-11-04 [facility] [id number] Univers 10:00:00 10:00:00 LIGIA [facility] 2019-11-03 2019-11-03 Telephone [facility] [id number] Univers 00:00:00 00:00:00 Ligia Sousa SOCIAL SCIENTIST [id number] it y of [facility] [id number] Marc as MATERNAL [id number] [facility] & CHILD [address] [place] [address] 2019-11-03 2019-11-03 Refill Doctor [facility] [id number] Univers 00:00:00 00:00:00 Unassigned, SOCIAL SCIENTIST [id number] ity of [place] REGIONAL [id number] Marc as MATERNAL [id number] [facility] & CHILD [address] [place] [address] 2019-11-02 2019-11-02 Office Kashif [facility] [id number] Univers 08:11:50 09:02:34 Visit Ligia Sousa SOCIAL SCIENTIST [id number] it y of [facility] [id number] Marc as MATERNAL [id number] [facility] & CHILD [address] [place] [address] 2019-11-02 2019-11-02 Outpatient R KASHIF [facility] [id number] Univers 07:45:00 07:45:00 LIGIA smyth of [facility] Results This patient has no known results.
[2021-06-20 14:28] LABS: SARS-COV-2 RT PCR NEGATIVE (NEGATIVE)
--- NOTE | 2021-06-20 15:08 | ER ---
Nurse's Notes [facility] Name: Carmen Luna Age: 31 yrs Sex: Female : 1990 Arrival Date: 06/20/2021 Time: 13:04 Bed Waiting Private MD: Diagnosis: Acute pharyngitis, unspecified Presentation: 06/20 13:13 Chief complaint: Patient states: Sore throat, congestion, feels feverish for 1 day. ll1 Coronavirus screen: Vaccine status: Patient reports being unvaccinated. Client denies travel out of the [place] in the last 14 days. congestion, sore throat, Client presents with at least one sign or symptom that may indicate coronavirus-19. Standard/surgical mask placed on the client. Ebola Screen: Patient denies travel to an Ebola-affected area in the 21 days before illness onset. Initial Sepsis Screen: Does the patient meet any 2 criteria? No. Patient's initial sepsis screen is negative. Does the patient have a suspected source of infection? Yes: Other: sore throat. Risk Assessment: Do you want to hurt yourself or someone else? Patient reports no desire to harm self or others. Onset of symptoms was June 20, 2021. 13:13 Method Of Arrival: Ambulatory ll1 13:13 Acuity: REG 4 ll1 Triage Assessment: 13:16 General: Appears uncomfortable, Behavior is calm, cooperative, appropriate for age. ll1 Pain: Complains of pain in throat Quality of pain is described as aching, Aggravated by eating, drinking. EENT: Reports nasal congestion pain when swallowing. Neuro: No deficits noted. Cardiovascular: No deficits noted. Respiratory: No deficits noted. 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 - Social history:: Smoking status: Patient denies any tobacco usage or history of. Screenin:47 Abuse screen: Denies threats or abuse. Nutritional screening: No deficits noted. ll1 Tuberculosis screening: No symptoms or risk factors identified. Fall Risk Total Bonilla Fall Scale indicates No Risk (0-24 pts). Assessment: 14:47 Reassessment: No changes from previously documented assessment. Patient and/or family ll1 updated on plan of care and expected duration. Pain level reassessed. Patient is alert, oriented x 3, equal unlabored respirations, skin warm/dry/pink. Trish Adamson saw patient in triage, no rooms available. Respiratory: Airway is patent Respiratory effort is even, unlabored. EENT: Throat is reddened. 14:47 Respiratory: Breath sounds are clear bilaterally. ll1 15:12 Reassessment: No changes from previously documented assessment. Patient and/or family ll1 updated on plan of care and expected duration. Pain level reassessed. Patient is alert, oriented x 3, equal unlabored respirations, skin warm/dry/pink. Vital Signs: 13:13 BP 143 / 98; Pulse 76; Resp 16; Temp 98.8; Pulse Ox 100% ; Weight 73.48 kg; Height 5 ll1 ft. 5 in. (165.10 cm); Pain 9/10; 13:13 Body Mass Index 26.96 (73.48 kg, 165.10 cm) ll1 ED Course: 13:04 Patient arrived in ED. mr 13:15 Triage completed. ll1 13:16 Arm band placed on. ll1 14:21 [facility]iva Adamson [facility] jordyn 14:21 Cesar Cole MD is Attending Physician. [facility] 14:47 No provider procedures requiring assistance completed. Patient did not have IV access ll1 during this emergency room visit. 14:48 Patient has correct armband on for positive identification. Bed in low position. ll1 Cardiac monitoring not applicable on this patient. Administered Medications: No medications were administered Outcome: 15:08 Discharge ordered by . jordyn 15:10 Discharged to home ambulatory. ll1 15:10 Condition: stable 15:10 Discharge instructions given to patient, Instructed on discharge instructions, follow up and referral plans. medication usage, Demonstrated understanding of instructions, follow-up care, medications, Prescriptions given X 1. 15:13 Patient left the ED. ll1 Signatures: Shiva Adamson PA PA jmm Rivera, Mary mr MottJazmine, RN RN ll1 Corrections: (The following items were deleted from the chart) 15:13 14:48 Condition: stable ll1 ll1 15:13 14:48 Discharged to home ambulatory, ll1 ll1 15:13 14:48 Discharge instructions given to patient, Instructed on discharge instructions, ll1 follow up and referral plans. medication usage, Demonstrated understanding of instructions, follow-up care, medications, Prescriptions given X 1, ll1
--- NOTE | 2021-06-20 15:09 | EDPHYS ---
Physician Documentation [facility] Name: Carmen Luna Age: 31 yrs Sex: Female : 1990 Arrival Date: 06/20/2021 Time: 13:04 Bed Waiting Private MD: BELKIS Physician Cesar Cole HPI: 06/20 13:17 This 31 yrs old Black Female presents to ER via Ambulatory with complaints of Sore jmm Throat. 13:17 The patient presents with sore throat. Onset: The symptoms/episode began/occurred jmm gradually, 2 day(s) ago. Modifying factors: The symptoms are alleviated by nothing, the symptoms are aggravated by nothing. Associated signs and symptoms: Pertinent positives: Sore throat. The patient has not experienced similar symptoms in the past. . 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 - Social history:: Smoking status: Patient denies any tobacco usage or history of. ROS: 13:17 Constitutional: Negative for fever, chills, and weight loss. jmm 13:17 Neck: Negative for injury, pain, and swelling, Cardiovascular: Negative for chest pain, palpitations, and edema. 13:17 ENT: Positive for sore throat. 13:17 Respiratory: Positive for cough. 13:17 All other systems are negative. Exam: 13:17 Constitutional: This is a well developed, well nourished patient who is awake, alert, jmm and in no acute distress. Head/Face: atraumatic. Eyes: EOMI, no conjunctival erythema appreciated 13:17 Neck: Trachea midline, Supple Chest/axilla: Normal chest wall appearance and motion. Cardiovascular: Regular rate and rhythm. No edema appreciated Respiratory: Normal respirations, no respiratory distress appreciated Abdomen/GI: Non distended, soft Back: Normal ROM Skin: General appearance color normal MS/ Extremity: Moves all extremities, no obvious deformities appreciated, no edema noted to the lower extremities Neuro: Awake and alert Psych: Behavior is normal, Mood is normal, Patient is cooperative and pleasant 13:17 ENT: Posterior pharynx: erythema, that is moderate. Vital Signs: 13:13 BP 143 / 98; Pulse 76; Resp 16; Temp 98.8; Pulse Ox 100% ; Weight 73.48 kg; Height 5 ll1 ft. 5 in. (165.10 cm); Pain 9/10; 13:13 Body Mass Index 26.96 (73.48 kg, 165.10 cm) ll1 MDM: 14:44 Patient medically screened. [facility] 15:08 Data reviewed: vital signs, nurses notes. Counseling: I had a detailed discussion with jordyn the patient and/or guardian regarding: the historical points, exam findings, and any diagnostic results supporting the discharge/admit diagnosis, lab results, the need for outpatient follow up, to return to the emergency department if symptoms worsen or persist or if there are any questions or concerns that arise at home. 06/20 13:17 Order name: Strep; Complete Time: 14:49 ll1 06/20 13:17 Order name: COVID-19/FLU A+B (Document "Date of Onset" if Symptomatic); Complete Time: ll1 14:49 06/20 14:23 Order name: Throat Culture EDMS Administered Medications: No medications were administered Disposition Summary: 06/20/21 15:08 Discharge Ordered Location: Home [facility] Condition: Stable [facility] Diagnosis - Acute pharyngitis, unspecified [facility] Followup: [facility] - With: Private Physician - When: 2 - 3 days - Reason: Recheck today's complaints, Continuance of care, Re-evaluation by your physician Discharge Instructions: - Pharyngitis [facility] - Discharge Summary Sheet ll1 Forms: - Medication Reconciliation Form [facility] - Thank You Letter [facility] - Antibiotic Education [facility] - Work release form 1 - Prescription Opioid Use [facility] Prescriptions: - Zithromax Z-Gio 250 mg Oral Tablet - take 1 tablet by ORAL route as directed for 5 days Day 1 - take two (2) tablets [facility] one time. Day 2, 3, 4 , 5 take one (1) tablet once daily.; 6 tablet; Refills: 0, Product Selection Permitted Signatures: Dispatcher [employer] EDMS Shiva Adamson PA PA jmm Lewis, Lynsay RN RN ll1
[2021-06-20 16:07] VITALS: BP 143/98; TEMP 98.8; O2SAT 100
== END 2021-06-20 15:13 | disposition home or self-care (01) ==
LOC: ER 13:00
DX: J02.9 Acute pharyngitis, unspecified (principal); Z20.822 Contact with and (suspected) exposure to COVID-19; Z88.0 Allergy status to penicillin
CPT/HCPCS: 0240U; 87070; 87081; 99282